=== PATIENT | male | born 1995 | race Caucasian/White ===

== ENCOUNTER 2020-05-29 13:30 | Emergency (ER) | payer OTHER ==
--- OUTSIDE RECORDS SUMMARY | 2020-05-29 13:32 | XMS REPORT | Summary of Care ---
:1995 Author Organization [facility] Address [address] [place] [address] Care Team Providers Name Role Phone Pcp, Patient Does Not Have A Primary Care Provider +1-000-00 0-0000 Reason for Visit Reason Comments Procedure Encounter Details Date Type Department Care Team Description 04/29/2020 Office Visit [facility] Rodolfo Snider Epidermal i nclusion DermatologyDom Schmid MD cyst (Primary Dx) [place] [address] [address] 5[address] [phone] [place] [address] Allergies No Known Allergiesdocumented as of this encounter (statuses as of 04/29/2020) Medications No known medicationsdocumented as of this encounter (statuses as of 04/29/2020) Active Problems No known active problemsdocumented as of this encounter (statuses as of 04/29/2020) Social History Tobacco Use Types Packs/Day Years Used Date Never Assessed Sex Assigned at Date Recorded Not on file COVID-19 Exposure Response Date Recorded In the last month, have you been in contact with No / Unsure 04/01/2020 10:38 AM CDT someone who was confirmed or suspected to have Coronavirus / COVID-19? documented as of this encounter Last Filed Vital Signs Not on filedocumented in this encounter Progress Notes Rodolfo Snider MD - 04/29/2020 1:00 PM CST Robert Olmos is a 24 year old male Cc: cyst HPI Robert Olmos is a 24 year old male who presents for cyst on left mid upper back. The cyst hasbeen present for several years, persistent. It has been growing. Denies any associated pain, itching, or bleeding. No previous treatments tried. Bothersome. Here today for excision. Histories No past medical history on file. SH: Lives in [place] [id number]; , is MS1 at [facility] Allergies No Known Allergies Medications No current outpatient medications on file prior to visit. No current facility-administered medications on file prior to visit. Review of Systems Skin: Itching (-), Pain (-) Heme: Bleeding (-) Physical Exam There were no vitals taken for this visit. Positive (+), Negative (-) General : Awake, no acute distress, well developed, well nourished Psychiatric: Normal affect, mood, speech and thought content Neurology: Alert, oriented to person, place, and situation Pulmonary: Breathing unlabored BACK: Positive (-)=Negative,(+)=Positive Actinic Keratosis (A): erythematous scaling papules Barth Hemaniogioma (CH): smooth red and purple papules Dermatitis Erythema (DE): mild to moderate erythema and scaling Dermatitis Lichenified (DL): lichenification and thickening Dermatitis Weeping (DW): weeping and excoriation Inflamed Seborrheic Keratosis (ISK): inflamed warty brown papules and plaques Millium (ML): Small white cystic papule Molluscum Contagiosum (MC): umbilicated papule Nevus Macular (NM): well circumscribed evenly pigmented macule Nevus Papular (RESPONDER): well circumscribed evenly pigmented papule Psoriasis Circumscribed (PC): well circumscribed erythema and scaling Psoriasis Diffuse (PD): diffuse patches of erythema and scaling Seborrheic Keratosis (SK): verrucous brown papules and plaques Scar (SR): cicatricial change Verruca Vulgarus (W): warty hyperkeratotic papule Assessment/Plan 1) Epidermal inclusion cyst - Left mid back -Procedure Type: Excision Location: Left mid back Preoperative Diagnosis: Epidermal Inclusion Cyst vs other Postoperative Diagnosis: Epidermal Inclusion Cyst vs other Preoperative Medications: none Antiseptic: Alcohol Anesthesia: 1% lidocaine with epinephrine Size of Lesion: 1.6 cm Length of Closure: 1 cm Sutures Used: 4-0 Prolene Closure Type: simple Drains: none Estimated Blood Loss: minimal Complications: none Findings: none Sterile Bandage and Petrolatum Applied: yes Specimen sent to Pathology: yes Discharge Medications: none Patient Information Given: yes The risks of the procedure, including a certain scar, bleeding, infection, nerve damage, failure to accomplish the goals of the surgery, and failure of the procedure were explained to the patient. Alternatives to the procedure were also discussed and the patient was offered an opportunity to ask any questions. After expressing understanding of the proposed procedure, the patient gave verbal consent for the procedure. The patient was placed in an appropriate position and the area was prepped. A time out was performedto confirm the patient's identity and the correct operative site, which the patient pointed out. Using a sterile surgical marking pen the lesion was marked for identification purposes. Local anesthesia was obtained with infiltration of the above mentioned anesthetic. A full thickness of skin incision using a 0.8 cm punch biopsy scalpel blade was performed and the lesion was incised into the superficial fascial and subcutaneous tissue plane. The lesion was dissected out and the specimen was submitted for histopathologic examination. Interrupted simple cutaneous sutures were used to approximate and jimbo the wound edges. The final length of the repair is listed in the summary above. A firm pressure dressing was applied over petrolatum. Verbal postoperative wound care instructions were given and a wound care hand out was provided. The patient was asked to follow up in 10-12 day(s) for a wound check/suture removal and discussion of thehistopathology report. The patient was also told to call us at anytime for signs of wound infection or any other concerns they might have regarding the surgery or the healing process. The patient tolerated the procedure well. Rodolfo Snider MD, FAAD [facility] Dermatology and Dermatopathology #[id number] [facility] 04/29 @ 1:00pm Patient seen and examined with Dr. Snider, who agrees with the plan of care. Jose Cole MD 11:06 AM PGY-2 [facility] Dermatology documented in this encounter Plan of Treatment Health Maintenance Due Date Last Done Comments VARICELLA VACCINES (1 of 1997 2-dose childhood series) MENINGOCOCCAL B VACCINES (1 of 2006 Risk Bexsero 2-dose series) HPV VACCINES (1 - Male 2-dose 2007 series) DTaP,Tdap,and Td Vaccines (1 - 2015 Tdap) INFLUENZA VACCINE (#1) 2020 Depression Screening 04/29/2021 04/29/2020 PNEUMOCOCCAL 0-64 YEARS COMBINED Aged Out No longer eligible based on SERIES patient's age to complete this topic documented as of this encounter Results Not on filedocumented in this encounter Visit Diagnoses Diagnosis Epidermal inclusion cyst - Primary Sebaceous cyst documented in this encounter documented as of this encounter
--- OUTSIDE RECORDS SUMMARY | 2020-05-29 13:32 | XMS REPORT | Continuity of Care Document ---
:1995 Author Organization [facility] t Address [address] [place] [address] [address]. [address] [place] [address] Care Team Providers Name Role Phone Agatha SANCHEZ P Attending Clinician Problems This patient has no known problems. Allergies, Adverse Reactions, Alerts This patient has no known allergies or adverse reactions. Medications This patient has no known medications. Procedures This patient has no known procedures. Encounters Start End Encounter Admission Attending Care Care Encounter Source Date/Time Date/Time Type Type Clinicians Facility Department ID 2020-04-29 2020-04-29 Office PINKY Snider [id number] 12:49:17 13:49:54 Visit Rodolfo [facility] [id number] [facility] [id number] Results This patient has no known results.
--- OUTSIDE RECORDS SUMMARY | 2020-05-29 13:32 | XMS REPORT | Summary of Care ---
:1995 Author Organization [facility] Address [address] [place] [address] Care Team Providers Name Role Phone Pcp, Patient Does Not Have A Primary Care Provider +1-000-00 0-0000 Reason for Visit Reason Comments New Patient Skin Check Encounter Details Date Type Department Care Team Description 04/01/2020 [facility] Rodolfo Snider Epidermal i nclusion Dermatology- PMD cyst (Primary Dx) [address] 5[address] Floor [phone] [place] [address] Allergies No Known Allergiesdocumented as of this encounter (statuses as of 04/01/2020) Medications No known medicationsdocumented as of this encounter (statuses as of 04/01/2020) Active Problems No known active problemsdocumented as of this encounter (statuses as of 04/01/2020) Social History Tobacco Use Types Packs/Day Years [...] on filedocumented in this encounter Progress Notes Jose Cole MD - 04/01/2020 10:15 AM CDT Robert Olmos is a 24 year old male Cc: cyst HPI Robert Olmos is a 24 year old male who presents for cyst on mid upper back. The cyst has beenpresent for several years, persistent. It has been growing. Denies any associated pain, itching, or bleeding. No previous treatments tried. Histories No past medical history on file. SH: Lives in [place] [address] Allergies No Known Allergies Medications No current [...] well circumscribed evenly pigmented macule Nevus Papular (PALLIATIVE MEDICINE PHYSICIAN): well circumscribed evenly pigmented papule Psoriasis Circumscribed (PC): well circumscribed erythema and scaling Psoriasis Diffuse (PD): diffuse patches of erythema and scaling Seborrheic Keratosis (SK): verrucous brown papules and plaques Scar (SR): cicatricial change Verruca Vulgarus (W): warty hyperkeratotic papule Assessment/Plan 1) Epidermal inclusion cyst - mid upper back - Etiology and treatment options discussed: excision vs observation - Bothersome to patient - Reassurance provided - Patient would like to have the cyst removed - Will schedule patient for excision on 04/29 @ 1:00pm RTC 04/29 @ 1:00pm Patient seen and examined with Dr. Snider, who agrees with the plan of care. Jose Cole MD 11:06 AM PGY-2 [facility] Dermatology documented in this encounter Plan of Treatment Date Type Specialty Care Team Description 04/29/2020 Office Visit Dermatology Rodolfo Snider MD [address] [place], [place] [phone] Health Maintenance Due Date Last Done Comments VARICELLA VACCINES (1 of 2 - 2-dose 1997 childhood series) MENINGOCOCCAL B VACCINES (1 of 2 - 2006 Risk Bexsero 2-dose series) HPV VACCINES (1 - Male 2-dose 2007 series) Depression Screening 2008 DTaP,Tdap,and Td Vaccines (1 - 2015 Tdap) INFLUENZA VACCINE (#1) 2020 PNEUMOCOCCAL 0-64 YEARS COMBINED Aged Out No longer eligible based on SERIES patient's age to complete this topic documented as of this encounter Results Not on filedocumented in this encounter Visit Diagnoses Diagnosis Epidermal inclusion cyst - Primary Sebaceous cyst documented in this encounter documented as of this encounter
--- OUTSIDE RECORDS SUMMARY | 2020-05-29 13:32 | XMS REPORT | Summary of Care ---
:1995 Author Organization [facility] Address [address] [place] [address] Care Team Providers Name Role Phone Pcp, Patient Does Not Have A Primary Care Provider +1-000-00 0-0000 Reason for Visit Reason Comments New Patient Skin Check Encounter Details Date Type Department Care Team Description 04/01/2020 Office Visit [facility] Rodolfo Snider Epidermal i nclusion Dermatology- PMD cyst (Primary Dx) [address] 5[address] Floor [phone] [place] [address] Allergies No Known Allergiesdocumented as [...] medical history on file. SH: [place] in [place] [address] Allergies No Known Allergies Medications No current [...] well circumscribed evenly pigmented macule Nevus Papular (IMMERSION METAL CLEANER): well circumscribed evenly pigmented papule Psoriasis Circumscribed [...] patient for excision on 04/29 @ 1:00pm (CPT [id number] and ICD10 L72.0) RTC 04/29 @ 1:00pm Patient seen and examined with Dr. Snider, who agrees with the plan of care. Jose Cole MD 11:06 AM PGY-2 [facility] Dermatology documented in this encounter Plan of Treatment Date Type Specialty Care Team Description 04/29/2020 Office Visit Dermatology Rodolfo Snider MD [address] [place], [place] [phone] Health Maintenance Due Date [...]
--- OUTSIDE RECORDS SUMMARY | 2020-05-29 13:32 | XMS REPORT | Summary of Care ---
:1995 Author Organization [facility] Address [address] [place] [address] Care Team Providers Name Role Phone Pcp, Patient Does Not Have A Primary Care Provider +1-000-00 0-0000 Reason for Visit Reason Comments New Patient Skin Check Encounter Details Date Type Department Care Team Description 04/01/2020 Office Visit [facility] Rodolfo Snider Epidermal i nclusion Dermatology- PMD cyst (Primary Dx) [address] 5[address] Floor [phone] [place] [address] Allergies No Known Allergiesdocumented as [...] medical history on file. SH: [place] in [place] [address] Allergies No Known Allergies Medications No current [...] well circumscribed evenly pigmented macule Nevus Papular (FRONT WINDOW CASHIER): well circumscribed evenly pigmented papule Psoriasis Circumscribed [...] care. Jose Cole MD 11:06 AM PGY-2 [facility] Dermatology documented in this encounter Plan of Treatment Date Type Specialty Care Team Description 04/29/2020 Office Visit Dermatology Rodolfo Snider MD [address] [place], [place] [phone] Health Maintenance Due Date [...]
--- OUTSIDE RECORDS SUMMARY | 2020-05-29 13:32 | XMS REPORT | Summary of Care ---
:1995 Author Organization [facility] Address [address] [place] [address] Care Team Providers Name Role Phone Pcp, Patient Does Not Have A Primary Care Provider +1-000-00 0-0000 Reason for Visit Reason Comments Procedure Encounter Details Date Type Department Care Team Description 04/29/2020 Office Visit [facility] Rodolfo Snider Epidermal i nclusion DermatologyDom Schmid MD cyst (Primary Dx) [place] [address] [address] [phone] [place] [address] Allergies No Known Allergiesdocumented as [...] medical history on file. SH: Lives in [place] [address]; , is MS1 at [facility] Allergies No Known Allergies Medications No current [...] well circumscribed evenly pigmented macule Nevus Papular (DIRECTOR OF RESTAURANTS): well circumscribed evenly pigmented papule Psoriasis Circumscribed [...] the procedure well. Rodolfo Snider MD, FAAD [facility] Dermatology and Dermatopathology #[id number] [facility] 04/29 @ 1:00pm Patient seen and examined with Dr. Snider, who agrees with the plan of care. Jose Cole MD 11:06 AM PGY-2 [facility] Dermatology documented in this encounter Plan [...]
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
== END 2020-05-29 15:33 | disposition home or self-care (01) ==
LOC: ER 13:30
DX: S50.11XA Contusion of right forearm, initial encounter (principal); V47.5XXA Car driver injured in collision with fixed or stationary object in traffic accident, initial encounter
CPT/HCPCS: 71045; 99284